=== PATIENT | male | born 1960 | race Caucasian/White ===

== ENCOUNTER → 2019-02-16 09:39 | Outpatient (CLI) | payer MEDICAID ==
[2014-08-13 12:15] VITALS: BMI 2060.2
[~2019-02-16 09:39] MED LIST: HYDROCODONE-APA1 TAB PO; VALIUM10 MG PO
== END | disposition home or self-care (01) ==
LOC: D.CT 09:39
PROVIDERS: ATTEND Emergency Medicine
DX: R10.9 Unspecified abdominal pain (principal)